=== PATIENT | female | born 1995 | race Caucasian/White ===

== ENCOUNTER 2016-06-04 11:21 | Outpatient (CLI) | payer MEDICAID ==
[~2016-06-04] VITALS: Ht 154.9 cm; Wt 78.9 kg
[~2016-06-04 11:21] MED LIST: ACET500C5 PO; BEN25 PO; CETI10CA PO; COLL1PAC12 TOP; HC1C30 TOP; IBUP-1542 PO; PRED20TA PO; PRENAT PO
[2016-06-04 11:36] VITALS: BP 109/59; PULSE 105; RESP 18; Ht 154.9 cm; Wt 78.9 kg
[2016-06-04 12:00] LABS: URINE BLOOD (Dip) POC Trace-lysed (NEGATIVE)
[2016-06-04 12:47] LABS: BASOPHIL # 0.2 10^3/ul (0.0-0.1); BASOPHILS % 1.6 % (0.0-2.0); EOSINOPHILS # 0.1 10^3/ul (0.0-0.5); EOSINOPHILS % 0.6 % (0.0-7.0); HEMATOCRIT 35.2 % (37.0-47.0); HEMOGLOBIN 11.7 g/dl (12.0-16.0); LYMPHOCYTES # 1.6 10^3/ul (0.8-2.9); MEAN CORPUSCULAR HEMOGLOBIN 29.7 pg (29.0-33.0); MEAN CORPUSCULAR HGB CONC 33.2 g/dl (32.0-37.0); MEAN CORPUSCULAR VOLUME 89.3 fl (82.0-101.0); MEAN PLATELET VOLUME 7.9 fl (7.4-10.4); MONOCYTE # 0.6 10^3/ul (0.3-0.9); MONOCYTES % 5.7 % (0.0-11.0); NEUTROPHILS % 77.1 % (39.0-77.0); PLATELET COUNT 201 10^3/UL (140-440); RED BLOOD COUNT 3.94 10^6/ul (4.20-5.40); UNCORRECTED WBC 10.4 10^3/ul (4.8-10.8); WHITE BLOOD COUNT 10.4 10^3/ul (4.8-10.8)
[2016-06-04 12:48] LABS: ADD UMIC YES; URINE BILIRUBIN (Dip) NEGATIVE (NEGATIVE); URINE BLOOD (Dip) 1+ (NEGATIVE); URINE COLOR LT. YELLOW (YELLOW); URINE GLUCOSE (Dip) NEGATIVE (NEGATIVE); URINE KETONES (Dip) NEGATIVE (NEGATIVE); URINE LEUKOCYTE ESTERASE (Dip) 2+ (NEGATIVE); URINE NITRITE (Dip) NEGATIVE (NEGATIVE); URINE TOTAL PROTEIN (Dip) NEGATIVE (NEGATIVE); URINE UROBILINOGEN (Dip) 0.2 E.U./dL (0.1-1.0)
[2016-06-04 13:04] LABS: CONDITION 1
[2016-06-04 13:16] LABS: BACTERIA,URINE FEW
[2016-06-04] MEDS ORDERED: TERBUTALINE 1 MG/ML INJ SC STA (14:19)
--- NOTE | 2016-06-04 14:27 | QN ---
Documentation Comment 20 y/o female C/O onset of dysuria and frequency x 2 days and onset of uterine contractions this AM has uneventful PMH PSH and on P/E: VSS P/E : NL Cx: closed uterine contractions subsided after SQ terbutaline U/A: C/W UTI will Rx as out patient WILLOW ALBERT MD Jun 04, 2016 14:27
== END 2016-06-04 15:25 | disposition home or self-care (01) ==
LOC: OBT 11:21 → L-D 11:23 → OBT 15:25
PROVIDERS: ATTEND Obstetrics & Gynecology
DX: O62.9 Abnormality of forces of labor, unspecified (principal); O23.43 Unspecified infection of urinary tract in pregnancy, third trimester; Z3A.00 Weeks of gestation of pregnancy not specified
CPT/HCPCS: 81001; 85025; J3105; Z7500; 81003; G0463

== ENCOUNTER 2016-06-23 22:59 | Outpatient (CLI) | payer MEDICAID ==
[~2016-06-23] VITALS: Ht 157.5 cm; Wt 82.9 kg
[~2016-06-23 22:59] MED LIST changes: -ACET500C5 PO; -BEN25 PO; -CETI10CA PO; -COLL1PAC12 TOP; -HC1C30 TOP; -IBUP-1542 PO; -PRED20TA PO
[2016-06-24 00:40] VITALS: BP 117/57; PULSE 91; RESP 18
[2016-06-24] MEDS ORDERED: FERR134T PO (00:43)
[2016-06-24] MEDS ORDERED: NITR-58 PO (00:43)
[2016-06-24] MEDS ORDERED: CALC667C PO (00:43)
--- NOTE | 2016-06-24 03:07 | TRIAGE ---
OB Triage Datetime Report Generated by CPN: 06/24/2016 03:06 Datetime: 06/24/2016 02:31 Stage of : OB Triage Labor Evaluation Frequency: 1.5-2 Monitor Mode: External Duration (sec)2399: 30-60 Quality: Mild Pattern: Normal: <= 5 Contractions in 10 Minutes Resting Tone [place]: Relaxed Heart Rate FHR Baseline Rate: 130 Monitor Mode: External US FHR Baseline Changes: No Baseline Change Variability: Moderate 6-25 bpm Accelerations: 15X15 Decelerations: None Category: Category I Pain Assessment Pain Scale: 6 Pain Presence: Intermittent Pain Type: Contraction Pain Location: Abdomen Vaginal Exam Dilatation (cms): 0.5 Effacement (%): 30 Station: -3 Exam By: Dr Delshad Membrane Status: Intact Vaginal Bleeding: None Cervix, Consistency: Moderate Cervix, Position: Posterior Datetime: 06/24/2016 01:59 Labor Evaluation Frequency: placed Monitor Mode: External Resting Tone [place]: Relaxed Monitor Mode: External US Comments: FHT 135 Pain Assessment Pain Scale: 6 Pain Presence: Intermittent Pain Type: Contraction Pain Location: Abdomen; Back Datetime: 06/24/2016 00:27 Labor Evaluation Frequency: irreg Quality: Mild Pattern: Normal: <= 5 Contractions in 10 Minutes Resting Tone [place]: Relaxed Heart Rate FHR Baseline Rate: 140 Monitor Mode: External US FHR Baseline Changes: No Baseline Change Variability: Moderate 6-25 bpm Accelerations: 15X15 Decelerations: None Category: Category I Datetime: 06/24/2016 00:10 Stage of : OB Triage Datetime: 06/24/2016 00:02 Stage of : OB Triage Datetime: 06/23/2016 23:47 Labor Evaluation Frequency: 3-8 Monitor Mode: External Duration (sec)2399: 30-70 Quality: Mild Pattern: Normal: <= 5 Contractions in 10 Minutes Resting Tone [place]: Relaxed Heart Rate FHR Baseline Rate: 140 Monitor Mode: External US FHR Baseline Changes: No Baseline Change Variability: Moderate 6-25 bpm Accelerations: 15X15 Decelerations: None Category: Category I Vaginal Exam Dilatation (cms): 0.5 Effacement (%): 30 Station: -3 Exam By: Jeannie Melo Membrane Status: Intact Vaginal Bleeding: None Cervix, Consistency: Soft Cervix, Position: Posterior Datetime: 06/23/2016 23:10 Maternal Assessment Level of Consciousness: Fully Conscious Headache: Denies Blurred Vision: No Nausea/Vomiting: Denies RUQ Epigastric Pain: Denies Facial Edema: None Labor Evaluation Frequency: placed Monitor Mode: External Resting Tone [place]: Relaxed Monitor Mode: External US Comments: FHT 145 Pain Assessment Pain Scale: 6 Pain Presence: Intermittent Pain Type: Contraction Pain Location: Abdomen Datetime: 06/04/2016 15:14 Time of Arrival: 06/23/2016 22:50 EGA: 37.5 Arrived By: Wheelchair Arrived From: Home Chief Complaint: w/ c/o ucs Movement: Decreased Contractions: Regular Time Contractions Began: 06/23/2016 20:00 Contractions: Q6 Rupture of Membranes: Denies Vaginal Bleeding: Scant Vaginal Discharge: Present Recent Sexual Intercouse: Denies Abdominal Trauma: Not Applicable Patient Complaints: Contractions Time Provider Notified: 06/24/2016 00:02 Provider Notified: Dr Paige Initial Plan: EFM,SVE Datetime: 06/04/2016 15:00 Labor Evaluation Frequency: OCCAS Monitor Mode: External Duration (sec)2399: 40-50 Quality: Mild Pattern: Normal: <= 5 Contractions in 10 Minutes Resting Tone [place]: Relaxed Heart Rate FHR Baseline Rate: 135 Monitor Mode: External US FHR Baseline Changes: No Baseline Change Variability: Moderate 6-25 bpm Accelerations: 15X15 Decelerations: None Category: Category I Datetime: 06/04/2016 14:12 Stage of : OB Triage Datetime: 06/04/2016 14:00 Labor Evaluation Frequency: OCCAS Monitor Mode: External Duration (sec)2399: 40-60 Quality: Mild Pattern: Normal: <= 5 Contractions in 10 Minutes Resting Tone [place]: Relaxed Heart Rate FHR Baseline Rate: 140 Monitor Mode: External US FHR Baseline Changes: No Baseline Change Variability: Moderate 6-25 bpm Accelerations: 15X15 Decelerations: None Category: Category I Datetime: 06/04/2016 13:25 Vaginal Exam Dilatation (cms): 0.0 Effacement (%): 50 Station: -3 Exam By: AGHUKASYAN Datetime: 06/04/2016 12:50 Labor Evaluation Frequency: OCCAS Monitor Mode: External Duration (sec)2399: 40-50 Quality: Mild Pattern: Normal: <= 5 Contractions in 10 Minutes Resting Tone [place]: Relaxed Heart Rate FHR Baseline Rate: 145 Monitor Mode: External US Variability: Moderate 6-25 bpm Accelerations: 15X15 Decelerations: None Category: Category I Datetime: 06/04/2016 11:40 Assessment Type: Admission Assessment EGA: 35.0 Maternal Assessment Level of Consciousness: Fully Conscious DTR's/Clonus: DTRs 2+; No Clonus Headache: Denies Blurred Vision: No Respiratory Effort: Unlabored; Regular Rhythm; Equal Expansion Breath Sounds, Left: Clear and Equal Breath Sounds, Right: Clear and Equal Nausea/Vomiting: Denies RUQ Epigastric Pain: Denies Lower Extremities Edema: None Degree: None Upper Extremities Edema: None Degree: None Facial Edema: None Fall Risk Assessment History of Falling: (0) No Secondary Diagnosis: (0) No Ambulatory Aid: (0) Bedrest/Nurse Assist IV Therapy: (0) No Gait: (0) Normal/Bedrest/Immobile Mental Status: (0) Oriented to Own Ability Fall Score: 0 Fall Risk Score Definition: No Risk: No action required Datetime: 06/04/2016 11:39 Time of Arrival: 06/04/2016 11:15 Arrived By: Ambulatory Arrived From: Home Chief Complaint: UC'S Movement: Present Contractions: Irregular Time Contractions Began: 06/04/2016 04:00 Rupture of Membranes: Denies Vaginal Bleeding: None Vaginal Discharge: Denies Recent Sexual Intercouse: Denies Abdominal Trauma: Not Applicable Patient Complaints: Contractions Time Provider Notified: 06/04/2016 12:13 Provider Notified: DR STONE Initial Plan: NST, UA, CBC AND VE
--- NOTE | 2016-06-24 03:08 | HP ---
Date/Time of Note Date/Time of Note DATE: 06/24/16 TIME: 03:04 OB - History Hx of Present Chief Complaint: contractions Estimated Due Date: Jul 09, 2016 : 2 Para: 1 Spontaneous : 0 Therapeutic : 0 Care: Good Care Obstetrical Complications: None Medical Complications: None Past Family/Social History * Past Medical, Surgical, Family and Obstetric Histories reviewed from chart. OB Admission Exam Vital Signs Vital Signs Vital Signs Date Time Temp Pulse Resp B/P Pulse Ox O2 Delivery O2 Flow Rate FiO2 06/24/16 00:40 98.6 91 18 117/57 Room Air Physical Exam HEENT: WNL Heart: Rhythm Normal Lungs: Clear Abdomen: WNL Cervical Dilatation: Fingertip Effacement: 0% Station: -3 Membranes: Intact Heart Rate: 120's Accelerations: Accelerations Present Decelerations: No Decelerations Varibility: Moderate OB Assessment/Plan Reason for admission: observation Plan: Other (No cervical change. D/C home.) DENISE MELGAR MD Jun 24, 2016 03:08
== END 2016-06-24 03:08 | disposition home or self-care (01) ==
LOC: L-D 22:59 → OBT 22:59
PROVIDERS: ATTEND Obstetrics & Gynecology
DX: O62.9 Abnormality of forces of labor, unspecified (principal); Z3A.37 37 weeks gestation of pregnancy
CPT/HCPCS: G0463

== ENCOUNTER 2016-07-10 10:48 | Inpatient (IN) | payer MEDICAID ==
[~2016-07-10] VITALS: Ht 157.5 cm; Wt 81.5 kg
[~2016-07-10 10:48] MED LIST changes: +CALC667C PO; +FERR134T PO; +NITR-58 PO
[2016-07-10 11:50] VITALS: Ht 157.5 cm; Wt 81.5 kg
[2016-07-10 11:51] LABS: ADD SCAN DIFF NO
[2016-07-10] MEDS ORDERED: METHYLERGONOVINE 0.2 MG INJ IM PRN (12:00)
[2016-07-10] MEDS ORDERED: OXYTOCIN 30 UNITS/LR 500 ML IV SCH ×2 (12:00)
[2016-07-10] MEDS ORDERED: CARBOPROST 250 MCG INJ IM PRN (12:00)
[2016-07-10] MEDS ORDERED: OXYTOCIN 30 UNITS/LR 500 ML IV PRN (12:00)
[2016-07-10] MEDS ORDERED: IBUPROFEN 600 MG TAB PO PRN (12:00)
[2016-07-10] MEDS ORDERED: BUTORPHANOL 2 MG INJ IV PRN (12:00)
[2016-07-10] MEDS ORDERED: LIDOCAINE 1% (MPF) 30 ML INJ INJ PRN (12:00)
[2016-07-10] MEDS ORDERED: MISOPROSTOL 200 MCG TAB PR PRN (12:00)
[2016-07-10 12:18] LABS: PROTIME 13.2 Sec (12.2-14.2)
[2016-07-10] MEDS: LACTATED RINGER'S 1,000 ML IV SCH ×2 (12:32→18:31)
[2016-07-10 13:15] LABS: BASOPHILS % 0.2 % (0.0-2.0); EOSINOPHILS # 0.1 10^3/ul (0.0-0.5); EOSINOPHILS % 0.7 % (0.0-7.0); HEMATOCRIT 36.7 % (37.0-47.0); HEMOGLOBIN 12.6 g/dl (12.0-16.0); LYMPHOCYTES # 1.5 10^3/ul (0.8-2.9); LYMPHOCYTES % 17.7 % (15.0-51.0); MEAN CORPUSCULAR HEMOGLOBIN 30.5 pg (29.0-33.0); MEAN CORPUSCULAR HGB CONC 34.3 g/dl (32.0-37.0); MEAN CORPUSCULAR VOLUME 88.9 fl (82.0-101.0); MEAN PLATELET VOLUME 11.5 fl (7.4-10.4); MONOCYTE # 0.6 10^3/ul (0.3-0.9); NEUTROPHIL # 6.1 10^3/ul (1.6-7.5); NEUTROPHILS % 73.8 % (39.0-77.0); PLATELET COUNT 180 10^3/UL (140-415); RED BLOOD COUNT 4.13 10^6/ul (4.20-5.40); RED CELL DISTRIBUTION WIDTH 14.2 % (11.5-14.5); WHITE BLOOD COUNT 8.2 10^3/ul (4.8-10.8)
[2016-07-10 13:43] VITALS: BP 110/64; PULSE 80; RESP 20
[2016-07-10] MEDS ORDERED: DINOPROSTONE 10 MG VAG SUPP VAG ONE (14:30)
[2016-07-10] MEDS ORDERED: LACTATED RINGER'S 1,000 ML IV PRN (17:00)
[2016-07-10] MEDS ORDERED: MINERAL OIL LIGHT 10 ML VIAL TOP PRN (20:30)
--- NOTE | 2016-07-10 20:57 | HP ---
Date/Time of Note Date/Time of Note DATE: 07/10/16 TIME: 20:53 OB - History Hx of Present Free Text/Dictation 21 y/o female admitted for induction at 40 + weeks Last Menstrual Period: October 03, 2015 Estimated Due Date: Jul 09, 2016 : 2 Para: 1 Care: Good Care Obstetrical Complications: None Medical Complications: None Past Family/Social History * Past Medical, Surgical, Family and Obstetric Histories reviewed from chart. Blood Type: O+ Rubella: immune RPR/VDRL: Negative GBS Status: Negative HBsAG: Negative OB Admission Exam Vital Signs Vital Signs Vital Signs Date Time Temp Pulse Resp B/P Pulse Ox O2 Delivery O2 Flow Rate FiO2 07/10/16 13:43 98.2 80 20 110/64 Room Air Physical Exam HEENT: WNL Heart: Rhythm Normal Lungs: Clear, Equal Abdomen: WNL Extremities: Normal Reflexes: Normal Cervical Dilatation: 1cm Effacement: 0% Station: -3 Membranes: Intact Heart Rate: 140's Accelerations: Accelerations Present Decelerations: No Decelerations Varibility: Marked Contractions on Admission: None Last 72 hours Lab Results CBC & BMP 07/10/16 11:30 OB Assessment/Plan Reason for admission: induction of labor Other Assessment: term gestation Induction Method: per Misoprostol Protocol WILLOW ALBERT MD Jul 10, 2016 20:57
[2016-07-11] MEDS: LACTATED RINGER'S 1,000 ML IV SCH ×2 (02:24→09:14)
[2016-07-11] MEDS ORDERED: FENTAnyl 2MCG/ML-ROPIV 0.2% 100 ML ONE (06:14)
--- NOTE | 2016-07-11 13:31 | LDN ---
Date/Time of Note Date/Time of Note DATE: 07/11/16 TIME: 13:29 Delivery Summary of a viable over intact perineum Placenta Delivered: Spontaneously, Intact & Complete Meconium: none Perineum intact?: Yes Anesthesia type: Epidural Estimated blood loss: 300 Sponge & Needle done & correct: Yes All needle counts correct: Yes Any foreign bodies felt in the: No Problems: Delivery Information Sex Infant Sex: female Apgars 1 Minute: 9 5 Minute: 9 Suctioning Nose & mouth suctioned at sola: Yes Delee suction performed: No Umbilical Cord Umbilical cord with: 3 Vessels Cord presentations: nuchal cord Nuchal cord present X: 1 Cord Blood was obtained: Yes Mother & Baby Disposition Disposition Mom & Baby to Maternity; Good: Yes (mother and baby were recovered in good condition ) Mom transferred to: Other (msternity ) Baby to NICU: No WILLOW ALBERT MD Jul 11, 2016 13:31
[2016-07-11 15:30] VITALS: BP 112/58; PULSE 68; RESP 18
[2016-07-11] MEDS ORDERED: MISOPROSTOL 200 MCG TAB PR PRN (15:30)
[2016-07-11] MEDS ORDERED: DIBUCAINE 1% 30 GM OINT PR PRN (15:30)
[2016-07-11] MEDS ORDERED: OXYTOCIN 30 UNITS/LR 500 ML IV PRN (15:30)
[2016-07-11] MEDS ORDERED: ACETAMINOPHEN/CODEINE #3 TAB PO PRN ×2 (15:30)
[2016-07-11] MEDS ORDERED: METHYLERGONOVINE 0.2 MG INJ IM PRN (15:30)
[2016-07-11] MEDS ORDERED: WITCH HAZEL/GLYCERIN PAD PR PRN (15:30)
[2016-07-11] MEDS ORDERED: ZOLPIDEM 5 MG TAB PO PRN (15:30)
[2016-07-11] MEDS ORDERED: BENZOCAINE 20% 56 ML SPRAY TOP PRN (15:30)
[2016-07-11] MEDS ORDERED: CARBOPROST 250 MCG INJ IM PRN (15:30)
[2016-07-11] MEDS: CEPHALEXIN 500 MG CAP PO SCH ×2 (17:14→23:42)
[2016-07-11] MEDS: IBUPROFEN 600 MG TAB PO SCH ×2 (17:14→23:42)
[2016-07-11] MEDS: LANOLIN 7 GM TUBE TOP PRN (17:14)
[2016-07-11] MEDS: LACTATED RINGER'S 1,000 ML IV* SCH ×2 (18:34→23:15)
[2016-07-11 19:20] VITALS: BP 104/50; PULSE 77; RESP 18
[2016-07-11] MEDS: MAGNESIUM HYDROXIDE 30ML CUP PO SCH (20:46)
[2016-07-11] MEDS: SENNA/DOCUSATE NA (8.6MG/50MG) TAB PO SCH (20:46)
[2016-07-12] VITALS: BP 100/55; PULSE 69
[2016-07-12 04:00] VITALS: BP 92/53; PULSE 70; RESP 18
[2016-07-12] MEDS: CEPHALEXIN 500 MG CAP PO SCH ×4 (05:33→23:43)
[2016-07-12] MEDS: IBUPROFEN 600 MG TAB PO SCH ×4 (05:33→23:43)
[2016-07-12] MEDS: LACTATED RINGER'S 1,000 ML IV* SCH (07:15)
[2016-07-12 07:25] LABS: BASOPHILS % 0.4 % (0.0-2.0); EOSINOPHILS # 0.1 10^3/ul (0.0-0.5); EOSINOPHILS % 0.8 % (0.0-7.0); HEMOGLOBIN 11.9 g/dl (12.0-16.0); LYMPHOCYTES # 2.2 10^3/ul (0.8-2.9); LYMPHOCYTES % 20.3 % (15.0-51.0); MEAN CORPUSCULAR HEMOGLOBIN 30.7 pg (29.0-33.0); MEAN CORPUSCULAR HGB CONC 33.9 g/dl (32.0-37.0); MEAN CORPUSCULAR VOLUME 90.5 fl (82.0-101.0); MEAN PLATELET VOLUME 8.9 fl (7.4-10.4); MONOCYTE # 0.7 10^3/ul (0.3-0.9); MONOCYTES % 6.1 % (0.0-11.0); NEUTROPHILS % 72.4 % (39.0-77.0); PLATELET COUNT 164 10^3/UL (140-440); RED BLOOD COUNT 3.87 10^6/ul (4.20-5.40); RED CELL DISTRIBUTION WIDTH 15.2 % (11.5-14.5)
[2016-07-12 07:37] LABS: CONDITION 1; LH ANALYZER COMMENTS 1
[2016-07-12 08:00] VITALS: BP 110/56; PULSE 68; RESP 18
[2016-07-12] MEDS: MAGNESIUM HYDROXIDE 30ML CUP PO SCH ×2 (09:40→20:58)
[2016-07-12] MEDS: SENNA/DOCUSATE NA (8.6MG/50MG) TAB PO SCH ×2 (09:40→20:58)
[2016-07-12] MEDS: LANOLIN 7 GM TUBE TOP PRN (09:40)
[2016-07-12 16:00] VITALS: BP 102/58; PULSE 76; RESP 18
[2016-07-12 19:30] VITALS: BP 111/68; PULSE 70; RESP 18
[2016-07-13 03:38] VITALS: BP 103/49; PULSE 71; RESP 18
[2016-07-13] MEDS: IBUPROFEN 600 MG TAB PO SCH ×2 (05:25→12:25)
[2016-07-13] MEDS: CEPHALEXIN 500 MG CAP PO SCH ×2 (05:25→12:26)
[2016-07-13 08:00] VITALS: BP 100/51; PULSE 83; RESP 18
[2016-07-13] MEDS ORDERED: DIPHTH/TET/ACEL PERTUSS (ADULT) 0.5 ML VIAL IM* ONE (09:00)
[2016-07-13] MEDS ORDERED: VARICELLA VACCINE LIVE/PF 1,350 UNIT/0.5 ML ML SC* ONE (09:00)
[2016-07-13] MEDS: MAGNESIUM HYDROXIDE 30ML CUP PO SCH (09:00)
[2016-07-13] MEDS ORDERED: MEASLES,MUMPS,RUBELLA VACCINE INJ SC* ONE (09:00)
[2016-07-13] MEDS: SENNA/DOCUSATE NA (8.6MG/50MG) TAB PO SCH (09:00)
--- NOTE | 2016-07-13 14:28 | DS ---
Date/Time of Note Date/Time of Note late entry home next day DATE: 07/12/16 Obstetrical Discharge Record Final Diagnosis Final Diagnosis: Term delivered Other Final Diagnosis S/P vaginal delivery Vaginal Delivery Obstetrical Delivery: Spontaneous Complications Augmentation: Yes Condition on Discharge Physical Assessment Last Vitals: see nurses notes Voiding: Yes Bowel Movement: Yes Breast: Soft, non-tender, Filling Fundus: Firm Abdomen and Incision: soft BS + Episiotomy: NA Calf Tenderness: No Patient Condition: Good WILLOW ALBERT MD Jul 13, 2016 14:28
[2016-07-13] MEDS ORDERED: IBUP-1542 PO (14:30)
--- NOTE | 2016-07-13 14:30 | PD.PPDC ---
TRIMMER SAWYER Discharge Instruction Provider Information Physician Information 21 y/o female had vaginal delivery Diagnosis Final Diagnosis: S/P vaginal delivery Condition Patient Condition: Good Diet Diet: Resume Regular Diet Activity/Restrictions Activity: Normal Activity May Shower Restrictions: Nothing in the Vagina Return to Work or School: Aug 24, 2016 Follow-up Follow-up with Physician: 4, Week/Weeks Return to clinic for OB Instructions: Breast Tenderness Depression WILLOW ALBERT MD Jul 13, 2016 14:29
== END 2016-07-13 16:25 | disposition home or self-care (01) | DRG 775 ==
LOC: L-D 10:48 → PP1 07-11 15:19
PROVIDERS: ADMIT Obstetrics & Gynecology; ATTEND Obstetrics & Gynecology
PROC: 10E0XZZ Delivery of Products of Conception, External Approach (ICD-10-PCS; principal; 2016-07-11)
DX: O48.0 Post-term pregnancy (principal); E66.01 Morbid (severe) obesity due to excess calories; Z3A.40 40 weeks gestation of pregnancy; O69.81X0 Labor and delivery complicated by cord around neck, without compression, not applicable or unspecified; O99.214 Obesity complicating childbirth; Z68.32 Body mass index [BMI] 32.0-32.9, adult; Z37.0 Single live birth
CPT/HCPCS: 62319; 85025; 85610; 85730; 86592; 86900; 86901; 90715; 90716; J2590; J3010; J7120

== ENCOUNTER 2016-12-05 10:25 | Emergency (ER) | payer MEDICAID ==
[~2016-12-05] VITALS: Ht 165.1 cm; Wt 72.5 kg
[~2016-12-05 10:25] MED LIST changes: +IBUP-1542 PO; -NITR-58 PO
[2016-12-05 10:27] VITALS: Ht 165.1 cm; Wt 72.5 kg
--- NOTE | 2016-12-05 17:25 | ERD ---
ER Documentation Chief Complaint Date/Time DATE: 12/05/16 TIME: 17:22 Chief Complaint ENCOUNTER FOR CONTROL IMPLANT. HPI 21-year-old female patient with no significant past medical history presents the ED complaining of headache that started after having a side effects from an Implanon placement 2 months ago. States that it is intermittent and mainly hurts in her forehead region. Denies any head or neck injuries. Denies any seizures or loss of consciousness. Reports that she had the Implanon placed at a clinic but is unsure of the POWER ENGINEER's name. States that she is here to remove the Implanon. Denies any chest pain, shortness of breath, seizures, numbness or tingling, abdominal pain, nausea, vomiting, fever, chills. ROS All systems reviewed and are negative except as per history of present illness. Medications Home Meds Active Scripts Ibuprofen* (Ibuprofen*) 600 Mg Tablet, 600 MG PO Q6, #30 TAB 0 Refills Prov:WILLOW ALBERT MD 07/13/16 Reported Medications Ferrous Sulfate (Iron) 134 Mg Tablet, 134 MG PO DAILY, TAB 06/24/16 Calcium Acetate* (Calcium Acetate*) 667 Mg Capsule, 1334 MG PO WITH MEALS, #60 CAP 06/24/16 Multivit/Min/Fol Ac/Iron/Pren* ( S*) 1 Tab Tab, 1 TAB PO DAILY, TAB 12/10/14 Allergies Allergies: Coded Allergies: No Known Allergies (Verified Allergy, Unknown, 06/24/16) PMhx/Soc History of Surgery: No Anesthesia Reaction: No Hx Neurological Disorder: No Hx Respiratory Disorders: No Hx Cardiac Disorders: No Hx Psychiatric Problems: No Hx Miscellaneous Medical Probl: No Hx Alcohol Use: No Hx Substance Use: No Hx Tobacco Use: No Physical Exam Vitals Vital Signs Date Time Temp Pulse Resp B/P Pulse Ox O2 Delivery O2 Flow Rate FiO2 12/05/16 10:27 99.1 81 18 118/80 98 Physical Exam Const: [id number], well-nourished. In no acute distress. Head: Atraumatic, normocephalic Eyes: Normal Conjunctiva without injection. No purulent discharge. PERRLA. EOMI ENT: Normal external ear, nose mouth. Non-erythematous pharynx. Uvula midline. No drooling. No trismus. Neck: No cervical midline tenderness. Full range of motion. No meningismus. No cervical lymphadenopathy. No JVD. Resp: Clear to auscultation bilaterally. No wheezing, rhonchi, rales, or crackles. No accessory muscle use. No retractions. Cardio: Regular rate and rhythm. No murmurs, rubs or gallops. Skin: Normal skin turgor. No petechiae or rashes. Implanon and left medial arm. No erythema, edema, fluctuance or induration. No purulent discharge noted. Ext: No cyanosis, or edema. Distal pulses intact bilaterally. Implanon palpated of left medial arm. No erythema, edema, fluctuance, induration. No bleeding noted. Neur: Awake and alert. Normal gait. Normal coordination. Cranial Nerves II- VII intact. Normal finger to nose. Muscle strength 5/5. Sensation intact. Psych: Normal Mood and Affect Procedures/MDM This is a 21-year-old female patient with no sniffing a past medical history presents the ED complaining of some side effects from the Implanon placed 2 months ago. Reports that she is here to remove the Implanon. I strictly instructed her to follow-up with the clinic that she had the Implanon placed. There are no signs of infection or deep space infection. No fluctuance or induration. No erythema or edema. There is an Implanon palpated in the medial aspect of patient's left upper arm. Low suspicion for cellulitis, deep space infection, DVT, anemia other emergent conditions. Discharge medications: Ibuprofen Follow up with primary care physician in 1-2 days. Instructed patient to return to the ED sooner for any worsening symptoms. Patient's questions were answered. Patient understood and agreed with discharge plan. Patient discharged stable. Departure Diagnosis: Primary Impression: Encounter for Implanon removal Condition: Stable Patient Instructions: Control Options, Control Methods, Foreign Body, Soft Tissue [Not Removed] [facility]errals[facility] Usted se ordonez hecho un examen mdico de control que le indica que no est en karissa condicin que requiera tratamiento urgente en el Departamento de Emergencia. Un estudio ms profundo y el tratamiento de bauman condicin pueden esperar sin ningn riesgo hasta que usted sea atendida/o en el consultorio de bauman mdico o karissa cl jhonatan. Es responsabilidad suya arreglar karissa alesia para el seguimiento del yogesh. MANEJO DE CONDICIONES NO URGENTES EN EL FUTURO 1) Si usted tiene un mdico de atencin primaria: Usted debera llamar a bauman mdico de atencin primaria antes de venir al departamento de emergencia. Despus de las horas de consultorio, bauman doctor o bauman asociado/a est disponible por telfono. El mdico o enfermero de christopher en el servicio telefnico puede asesorarle por lucille medio para atender el problema, o yogesh contrario se puede programar karissa alesia. 2) Si usted no tiene un mdico de atencin primaria: Llame al mdico o clnica de referencia que aparece abajo alondra las horas de consultorio para hacer karissa alesia para que le vean. CLINICAS: [facility] [phone] [facility] [phone] 75[address] [facility]. [facility] [phone] [address] [facility] [place]. [place] [id number] [phone] [facility]. [place] [address] [phone] [facility]. [phone] [facility]. [facility] () Usted se ordonez hecho un examen mdico de control que le indica que no est en karissa condicin que requiera tratamiento urgente en el Departamento de Emergencia. Un estudio ms profundo y el tratamiento de bauman condicin pueden esperar sin ningn riesgo hasta que usted sea atendida/o en el consultorio de bauman mdico o karissa cl jhonatan. Es responsabilidad suya arreglar karissa alesia para el seguimiento del yogesh. MANEJO DE CONDICIONES NO URGENTES EN EL FUTURO 1) Si usted tiene un mdico de atencin primaria: Usted debera llamar a bauman mdico de atencin primaria antes de venir al departamento de emergencia. Despus de las horas de consultorio, bauman doctor o bauman asociado/a est disponible por telfono. El mdico o enfermero de christopher en el servicio telefnico puede asesorarle por lucille medio para atender el problema, o yogesh contrario se puede programar karissa alesia. 2) Si usted no tiene un mdico de atencin primaria: Llame al mdico o condado institucions de referencia que aparece abajo alondra las horas de consultorio para hacer karissa alesia para que le vean. SI USTED NO PUEDE PAGAR PARA KAREN UN MEDICO puede ir a: [facility] [address] [place] [address] [facility] [address] [place] [address] [facility] [address] [place] [address] [facility] [address] [place], [place] [id number] [employer] [place] [address] [facility] [address] [place], [place] [id number] OFFICE FAX STEVE RICHARDSON [address] [place], [place] [phone] DR. MELGAR REGINA [address] [place], [place] [phone] GAURANG ARANGO [address] [facility], [address] [address] [address] [address] [place] [address] [facility] [address] [place] [address] [address] [facility] [address] - DR BYRNE, HELEN [address], [facility] [phone] MENJIVAR, LOLA [address] [facility]. [address], [facility] [address] [address] VALLES, FARID [address] [place] [address] [facility] Hours: 8:00 am - 5:00 pm Additional Instructions: Por favor devuelva a la clnica que fue dos meses atrs cuando fue implantado el implanon para quitarlo. otras opciones de mtodo de control de la natalidad se gannon proporcionado para que discutir con un especialista en Obstetricia y Ginecologa. Regrese a estas instalaciones si no se mejora kenji esperbamos o kenji le dirubénmos - fiebre, infeccin. SYLVESTER HODGE PA-C Dec 05, 2016 17:25 SYLVESTER HODGE PA-C Dec 05, 2016 17:25
== END 2016-12-05 11:47 | disposition home or self-care (01) ==
LOC: FTE 10:25
DX: Z30.432 Encounter for removal of intrauterine contraceptive device (principal)
CPT/HCPCS: 99282